=== PATIENT | male | born 1960 | race Caucasian/White ===

== ENCOUNTER 2017-11-05 21:01 | Emergency (ER) | payer BC ==
[~2017-11-05] VITALS: Ht 180.3 cm; Wt 66.1 kg
[2017-11-05 22:28] VITALS: BP 102/69
== END 2017-11-05 22:29 | disposition home or self-care (01) ==
LOC: EME 21:01
DX: M70.22 Olecranon bursitis, left elbow (principal); S50.312A Abrasion of left elbow, initial encounter; W00.0XXA Fall on same level due to ice and snow, initial encounter
CPT/HCPCS: 73080; 99281; 99283